=== PATIENT | female | born 1975 ===

== ENCOUNTER 2018-02-07 09:04 | Emergency (ER) | payer OTHER ==
[~2018-02-07] VITALS: Ht 152.4 cm; Wt 68.0 kg
[2018-02-07] MEDS ORDERED: PRENATABS FA T1 EACH (09:35)
[2018-02-07] MEDS ORDERED: FOLIC ACID0.4 MG (09:36)
== END 2018-02-07 17:43 | disposition home or self-care (01) ==
LOC: ER 09:04
DX: O23.31 Infections of other parts of urinary tract in pregnancy, first trimester (principal); Z34.81 Encounter for supervision of other normal pregnancy, first trimester

== ENCOUNTER 2018-05-11 17:17 | Inpatient (IN) | payer OTHER ==
[~2018-05-11] VITALS: Ht 154.9 cm; Wt 78.0 kg
[~2018-05-11 17:17] MED LIST: FOLIC ACID0.4 MG; PRENATABS FA T1 EACH
== END 2018-05-12 18:17 | disposition designated cancer center or children's hospital (05) | DRG 833 ==
LOC: OBS/DEL 17:17 → LDR 20:48
PROVIDERS: ADMIT Obstetrics & Gynecology
PROC: 4A1HXCZ Monitoring of Products of Conception, Cardiac Rate, External Approach (ICD-10-PCS; principal; 2018-05-11)
PROC: B246ZZZ Ultrasonography of Right and Left Heart (ICD-10-PCS; 2018-05-11)
PROC: BY4CZZZ Ultrasonography of Second Trimester, Single Fetus (ICD-10-PCS; 2018-05-11)
DX: O99.413 Diseases of the circulatory system complicating pregnancy, third trimester (principal); I49.8 Other specified cardiac arrhythmias; I20.8 Other forms of angina pectoris; Z34.82 Encounter for supervision of other normal pregnancy, second trimester

== ENCOUNTER 2022-08-16 08:47 | Outpatient (CLI) | payer OTHER ==
[~2022-08-16 08:47] MED LIST changes: +PROPRANOLOL HCL80 M1 PO
== END 2022-08-16 08:48 | disposition home or self-care (01) ==
LOC: LAB 08:47
PROVIDERS: ATTEND Obstetrics & Gynecology
DX: U07.1 COVID-19 (principal)

== ENCOUNTER 2022-08-17 10:30 | Day surgery (SDC) | payer OTHER ==
[~2022-08-17] VITALS: Ht 152.4 cm; Wt 81.2 kg
== END 2022-08-17 22:00 | disposition home or self-care (01) ==
LOC: CIR.AMB 10:30
PROVIDERS: ATTEND Obstetrics & Gynecology
DX: N87.1 Moderate cervical dysplasia (principal); N72 Inflammatory disease of cervix uteri; N93.8 Other specified abnormal uterine and vaginal bleeding; N84.0 Polyp of corpus uteri; Z20.822 Contact with and (suspected) exposure to COVID-19